=== PATIENT | male | born 2000 | race Caucasian/White ===

== ENCOUNTER 2022-05-14 16:46 | Emergency (ER) | payer MEDICAID ==
[2022-05-14] MEDS ORDERED: Adacel Vial IM ONE ×2 (16:53→17:12)
[2022-05-14 17:09] VITALS: PULSE 80
[2022-05-14] MEDS ORDERED: BACIGUENT PACKET TP ONE (17:20)
[2022-05-14] MEDS ORDERED: BACIGUENT PACKET ONE (17:20)
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
[2022-05-14] MEDS ORDERED: TORAdol 30 mg Injection IM ONE (17:35)
[2022-05-14] MEDS ORDERED: TORAdol 30 mg Injection ONE (17:44)
[2022-05-14 17:50] VITALS: O2SAT 97
[2022-05-14] MEDS ORDERED: NORCO 5/325 MG PO ONE (17:51)
[2022-05-14] MEDS ORDERED: NORCO 5/325 MG ONE (17:52)
[2022-05-14 18:22] VITALS: BP 160/83
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
== END 2022-05-14 18:11 | disposition home or self-care (01) ==
LOC: ED 16:46
DX: S82.001A Unspecified fracture of right patella, initial encounter for closed fracture (principal); S80.212A Abrasion, left knee, initial encounter; S80.211A Abrasion, right knee, initial encounter; V86.39XA Unspecified occupant of other special all-terrain or other off-road motor vehicle injured in traffic accident, initial encounter; M25.561 Pain in right knee; M25.562 Pain in left knee; Z79.891 Long term (current) use of opiate analgesic; Z28.310 Unvaccinated for COVID-19
CPT/HCPCS: 73562; 90471; 90715; 96372; 99285; J1885; L1830; A9270-GY

== ENCOUNTER 2023-08-11 19:44 | Emergency (ER) | payer BC, MEDICAID ==
--- NOTE | 2023-08-11 19:57 | ERPHSYRPT ---
- History of Present Illness Time Seen by Provider: 08/11/23 19:57 Source: patient Exam Limitations: no limitations Physician History: The patient presents with a left-sided earache that began approximately two weeks ago. They have not experienced frequent ear infections in the past and have no history of ear tubes. The patient reports intermittent headaches accompanying the earache but denies having a fever or sore throat. They mention that their children were recently sick, which may be relevant to their current condition. The patient describes a change in hearing in the affected ear, with hearing fading in and out at times. They also report occasional ringing in the left ear. The patient has not had any previous issues with this ear. There has been no drainage from the ear, but the patient is experiencing pain, which has been severe enough to cause them to pray for relief in recent nights. The patient does not have a primary care doctor and is seeking advice on how to establish care with one. They are not aware of any allergies to medications. Timing/Duration: weeks (2) Severity: severe ENT Location: ear (L) Prearrival Treatment: over the counter meds Modifying Factors: Improves With: nothing Associated Symptoms: ear pain (L), headache, No cough, No fever, No chills, No change in hearing, No dizziness, No hearing loss, No jaw pain, No nasal congestion/drainage, No neck pain, No swollen glands, No sore throat Allergies/Adverse Reactions: No Known Drug Allergies Allergy (Verified 08/11/23 19:49) Hx Tetanus, Diphtheria Vaccination/Date Given: Yes Hx Influenza Vaccination/Date Given: No Hx Pneumococcal Vaccination/Date Given: No Travel Risk - Vaccine Status Have you recieved a Covid-19 vaccination: No - Review of Systems All Other Systems: Reviewed and Negative (As per HPI) - Past Medical History Pertinent Past Medical History: No - Past Surgical History Past Surgical History: No - Social History Smoking Status: Never smoker Exposure to second hand smoke: No Drug Use: none Patient Lives Alone: No Significant Family History: no pertinent family hx - Nursing Vital Signs Nursing Vital Signs: Initial Vital Signs Temperature 99.3 F 08/11/23 19:50 Pulse Rate 61 08/11/23 19:50 Respiratory Rate 18 08/11/23 19:50 Blood Pressure 181/102 08/11/23 19:50 O2 Sat by Pulse Oximetry 99 08/11/23 19:50 Pain Scale Pain Intensity 10 - Physical Exam General Appearance: mild distress Ear Exam: left ear: auricle normal, canal normal, TM dull, TM red, TM bulging (inferior aspect w/ yellow to white discoloration) Nasal Exam: normal inspection, No discharge Throat Exam: normal, pharynx normal, No excessive drooling, No pharynx swelling, No pharynx tenderness, No tongue swollen, No tonsillar swelling, No uvula swelling Neck Exam: normal inspection, non-tender, supple, full range of motion, No Brudzinski's sign, No Kernig's sign Cardiovascular/Respiratory Exam: normal breath sounds, regular rate/rhythm Neurologic Exam: alert, oriented x 3, cooperative Skin Exam: normal color, warm, dry, No rash SpO2 Interpretation: normal O2 Delivery: Room Air - Course Nursing assessment & vital signs reviewed: Yes - Progress Progress: improved Progress Note: Left ear shows signs concerning for otitis media with concern for possible cholesteatoma versus exudate secondary to otitis media at the inferior aspect of the left TM. I will place 1cc of 1% Lidocaine w/o epi into the left ear for pain control. 1g of Amoxicillin to be given and sent to pharmacy. Advise f/u w/ ENT after treatment for further evaluation. 08/11/23 20:17 Counseled pt/family regarding: diagnosis, need for follow-up Medical Desision Making - Diagnostic Testing Diagnostic test were ordered, analyzed, and reviewed by me: No - Risk of complications The pt has a mod risk of morbidity or mortality based on: Need for prescription drug management - Departure Departure Disposition: Home Clinical Impression: Otitis media Condition: Good Critical Care Time: No Referrals: ANDRES PARKER [NON-STAFF PHY W/O PRIVILEGES] - Follow up/PCP as directed DOCTOR,NO FAMILY [Primary Care Provider] - Follow up/PCP as directed Instructions: Ear Infections in Adults (DC) Prescriptions: Amoxicillin 875 mg PO TID 7 Days #21 tablet
[2023-08-11 20:05] VITALS: TEMP 99.3; O2SAT 99
[2023-08-11] MEDS ORDERED: AMOXIL 500 MG PO ONE (20:11)
[2023-08-11] MEDS ORDERED: AMOXIL 500 MG ONE (20:14)
[2023-08-11 20:32] VITALS: BP 174/100; PULSE 70; RESP 16
== END 2023-08-11 20:45 | disposition home or self-care (01) ==
LOC: ED 19:44
DX: H66.92 Otitis media, unspecified, left ear (principal); H92.02 Otalgia, left ear; H93.12 Tinnitus, left ear; Z28.310 Unvaccinated for COVID-19
CPT/HCPCS: 99282; A9270-GY